=== PATIENT | female | born 1995 | race Caucasian/White ===

== ENCOUNTER → 2021-03-17 | Outpatient (CLI) | payer OTHER ==
[2021-03-17 10:25] LABS: HGB 14.7 gm/dL (11.4-16.0); MCH 30.8 pg (25.0-35.0); MCHC 35.1 g/dL (31.0-37.0); MCV 87.9 fL (80.0-100.0); Mean Platelet Volume 7.6; Platelet Count 320 k/uL (150-450); RBC 4.77 m/uL (3.80-5.40); WBC 8.1 k/uL (3.8-10.6)
== END | disposition home or self-care (01) ==
LOC: LABPAT 09:51
PROVIDERS: ATTEND Obstetrics & Gynecology
DX: Z01.812 Encounter for preprocedural laboratory examination (principal); O02.1 Missed abortion; Z3A.00 Weeks of gestation of pregnancy not specified
CPT/HCPCS: 36415; 85027

== ENCOUNTER 2021-03-19 07:46 | Day surgery (SDC) | payer OTHER ==
[2021-03-17 13:13] VITALS: BMI 34.4
[~2021-03-19 07:46] MED LIST: Pre Op ABX Message 1 EACH MISC MISCELLANE ONE
[2021-03-19] MEDS ORDERED: ONDANSETRON 4 MG/2 ML VIAL ONE (08:07)
[2021-03-19] MEDS ORDERED: LACTATED RINGERS 1,000 ML IV ONE ×2 (08:24→10:41)
[2021-03-19] MEDS ORDERED: DEXAMETHASONE SOD PHOSPHATE 4 MG/ML 1 ML VIAL IVP ONE (08:30)
[2021-03-19] MEDS ORDERED: ONDANSETRON 4 MG/2 ML VIAL IVP ONE (08:30)
[2021-03-19] MEDS ORDERED: SUCCINYLCHOLINE CHLORIDE 100 MG/5 ML SYR IV ONE (08:57)
[2021-03-19] MEDS ORDERED: MIDAZOLAM 2 MG/2 ML VIAL ONE (08:57)
[2021-03-19] MEDS ORDERED: KETOROLAC 15 MG/ML 1 ML VIAL ONE (08:57)
[2021-03-19] MEDS ORDERED: fentaNYL (PF) 50 MCG/ML 2 ML AMP ONE (08:57)
[2021-03-19] MEDS ORDERED: PROPOFOL 10 MG/ML 20 ML VIAL IV ONE (08:57)
[2021-03-19] MEDS ORDERED: LIDOCAINE 1% INJ 10MG/ML (20 ML MDV) ONE (08:57)
[2021-03-19] MEDS ORDERED: SIMETHICONE 80 MG CHEWABLE PO PRN (09:34)
[2021-03-19] MEDS ORDERED: IBUPROFEN 600 MG TAB PO PRN (09:34)
[2021-03-19] MEDS ORDERED: Acetaminophen-Codeine 300-30mg TAB PO PRN ×2 (09:34)
[2021-03-19] MEDS ORDERED: METOCLOPRAMIDE 5 MG/ML 2 ML VIAL IVP PRN (09:34)
[2021-03-19] MEDS ORDERED: diphenhydrAMINE 50 MG/ML 1 ML VIAL IVP PRN (09:34)
[2021-03-19] MEDS ORDERED: ONDANSETRON 4 MG/2 ML VIAL IVP PRN (09:34)
[2021-03-19] MEDS ORDERED: Rhogam IMMUNE GLOBULIN 1,500 UNIT/1 ML IM ONE (09:35)
--- NOTE | 2021-03-19 09:40 | P.OP ---
Date of Procedure: 03/19/21 Preoperative Diagnosis: 8+ week missed Postoperative Diagnosis: Same Procedure(s) Performed: Dilation and aspiration curettage Anesthesia: LEYLA Surgeon: Jose Rosales Estimated Blood Loss (ml): 50 IV fluids (ml): 200 Urine output (ml): 100 Pathology: other (Intrauterine contents) Condition: stable Disposition: PACU Operative Findings: Preoperative pelvic examination demonstrated a roughly 8-9 week slightly anteverted mobile normal shaped uterus with normal adnexa bilaterally. Intraoperatively, the uterus sounded to approximately 10 cm. Tissue was clearly seen passing through the tubing on the first pass and none was noted thereafter. Using the sharp curet, the typical gritty texture was encountered and no further tissue was noted with sharp curettage. Description of Procedure: The patient was prepped and draped in usual fashion after general endotracheal anesthesia was administered by the anesthesiologist. A weighted speculum was placed and the anterior lip of cervix grasped with a single-tooth tenaculum after draining the bladder approximate 100 mL of clear vikas urine. The uterus was sounded to approximately 10 cm as noted above. Serial dilation was carried out to admit a #8 curved aspiration curet which was placed to the fundus of the uterus and suction applied. After adequate suction had been built, thorough and circumferential suction curettage was carried out from the fundus to the cervix with tissue clearly seen passing through the tubing on the first pass. A second pass was made and no further tissue was noted. The aspiration curet was treated for a sharp curette which was utilized to thoroughly and circumferentially curet the lining of the uterus at which time the typical gritty texture was encountered and no further tissue was noted. 2 more passes were made with the suction curet with no further evidence of tissue. All instrumentation was removed. One point of bleeding at one of the tenaculum sites was made hemostatic with pressure. Estimated blood loss for the entire case was 50 mL or less. There were no complications. All sponge, instrument, and needle counts were correct. The patient tolerated the procedure well and proceeded to the recovery room in stable condition.
[2021-03-19] MEDS ORDERED: LACTATED RINGERS 1,000 ML IV SCH (09:45)
[2021-03-19 09:54] VITALS: TEMP 97.8
[2021-03-19 11:12] VITALS: BP 106/75; PULSE 75; RESP 16
== END 2021-03-19 11:30 | disposition home or self-care (01) ==
LOC: OR 07:46
PROVIDERS: ATTEND Obstetrics & Gynecology
DX: O02.1 Missed abortion (principal); F41.9 Anxiety disorder, unspecified; F32.9 Major depressive disorder, single episode, unspecified; Z98.891 History of uterine scar from previous surgery; K21.9 Gastro-esophageal reflux disease without esophagitis; Z90.89 Acquired absence of other organs; Z79.899 Other long term (current) drug therapy
CPT/HCPCS: 86900; 86901; 88305; 86850; 59820; J2790; J2250; J1100; J2405; J2001; J3010; J1885; J0330; J2704

== ENCOUNTER 2022-07-24 23:45 | Inpatient (IN) | payer BC, OTHER ==
[2022-07-25] MEDS ORDERED: CITRIC ACID-SODIUM CITRATE 15 ML CUP PO ONE (00:28)
[2022-07-25] MEDS: LACTATED RINGERS 1,000 ML IV SCH ×4 (01:14→22:54)
[2022-07-25] MEDS: AMPICILLIN 2,000 MG in SODIUM CHLORIDE 0.9% 100 ML IVPB SCH ×3 (01:15→22:54)
[2022-07-25 01:31] LABS: Basophils % (A) 0 %; Eosinophils % (A) 1 %; HCT 35.5 % (34.0-46.0); HGB 12.3 gm/dL (11.4-16.0); Lymphocytes # (A) 1.4 k/uL (1.0-4.8); Lymphocytes % (A) 16 %; MCH 29.2 pg (25.0-35.0); MCHC 34.5 g/dL (31.0-37.0); MCV 84.5 fL (80.0-100.0); Mean Platelet Volume 8.8; Monocytes # (A) 0.3 k/uL (0-1.0); Monocytes % (A) 3 %; Neutrophils # (A) 7.4 k/uL (1.3-7.7); Neutrophils % (A) 79 %; Platelet Count 302 k/uL (150-450); Poikilocytosis Slight; RDW 13.6 % (11.5-15.5); WBC 9.3 k/uL (3.8-10.6)
[2022-07-25] MEDS ORDERED: NALBUPHINE 10 MG/ML (1 ML AMP) ONE (08:01)
[2022-07-25] MEDS ORDERED: OXYTOCIN 30 UNITS/500 ML NS BAG IV ONE (08:01)
[2022-07-25] MEDS ORDERED: KETOROLAC 15 MG/ML 1 ML VIAL ONE (08:01)
[2022-07-25] MEDS ORDERED: ONDANSETRON 4 MG/2 ML VIAL ONE (08:01)
[2022-07-25] MEDS ORDERED: MORPHINE SULFATE (PF) 0.3 MG/0.3 ML SYR ONE (08:01)
[2022-07-25] MEDS ORDERED: LANOLIN CREAM 5 GM TUBE TOPICAL PRN (09:04)
[2022-07-25] MEDS ORDERED: diphenhydrAMINE 50 MG CAP PO PRN (09:04)
[2022-07-25] MEDS ORDERED: diphenhydrAMINE 50 MG/ML 1 ML VIAL IVP PRN ×2 (09:04)
[2022-07-25] MEDS ORDERED: KETOROLAC 15 MG/ML 1 ML VIAL IVP PRN (09:04)
[2022-07-25] MEDS ORDERED: ONDANSETRON 4 MG/2 ML VIAL IVP PRN (09:04)
[2022-07-25] MEDS ORDERED: ZOLPIDEM 5 MG TAB PO PRN (09:04)
[2022-07-25] MEDS ORDERED: NALOXONE 0.4 MG/ML 1 ML VIAL IV PRN (09:04)
[2022-07-25] MEDS ORDERED: SIMETHICONE 80 MG CHEWABLE PO PRN (09:04)
[2022-07-25] MEDS ORDERED: METOCLOPRAMIDE 5 MG/ML 2 ML VIAL IVP PRN (09:04)
[2022-07-25] MEDS ORDERED: diphenhydrAMINE 25 MG CAP PO PRN (09:04)
[2022-07-25] MEDS ORDERED: OXYTOCIN 30 UNITS/500 ML NS 30 UNIT in SALINE 1 500ML.BAG IV SCH (09:15)
--- NOTE | 2022-07-25 09:15 | P.OP ---
Date of Procedure: 07/25/22 Preoperative Diagnosis: #1. 38-5/7 weeks, prolonged rupture of membranes #2. Previous section, requesting repeat #3. Undesired fertility Postoperative Diagnosis: same Procedure(s) Performed: #1. Repeat low transverse section #2. Intraoperative bilateral tubal occlusion with Filshie clips Anesthesia: spinal Surgeon: Jose Rosales Wire Loop Machine Operator #1: Vianney Kenny Estimated Blood Loss (ml): 880 IV fluids (ml): 800 Urine output (ml): 100 Pathology: other (placenta) Condition: stable Disposition: floor Operative Findings: preoperatively, the patient presented with possible rupture of membranes for an on designated length of time, possibly since 5 days ago. Regardless, spontaneous rupture of membranes was documented and the patient was not in labor. She was ultimately brought to the operating room this morning where she underwent repeat low transverse section was delivered of a viable 7 lbs. 12 oz. baby boy with Apgars of 9 at 1 minute and 10 at 5 minutes. The placenta was delivered manually, intact, and grossly normal with a grossly normal three-vessel cord. The uterus, tubes, and ovaries were entirely normal to inspection though there was some omental scarring to the left angle of the anterior portion of the uterus. A Filshie clip was firmly placed across both fallopian tubes in the isthmic portion approximately 2-3 cm from the cornea. Description of Procedure: the patient was prepped and draped in usual fashion after spinal anesthesia was administered by the anesthesiologist. A Pfannenstiel incision was made through pre-existing scar and extended of the abdominal cavity without difficulty. The bladder peritoneum was elevated, incised, and reflected distally. A 2 cm incision was made and the lower segment of the uterus in a transverse fashion attention uterus at which time clear fluid was again noted. Incision was extended in both directions using the bandage scissors. The head was delivered up and through the incision where the nose and mouth were thoroughly suctioned. There were 2 nuchal cords which were reduced prior to delivering the remainder of the . The infant was then delivered onto the field where the cord was doubly clamped, cut, and the passed for resuscitative measures with weight and Apgars as noted above. cord blood was collected for the necessity for RhoGAM prior to discharge. A segment of cord was then doubly clamped, cut, and set aside should cord gases be necessary. The placenta was delivered manually and intact as noted above. The uterus was exteriorized and there was a small adhesion of the omentum to the left middle fundal portion of the uterus which was lysed with the Bovie. The margins of the uterine incision were grasped with Chaney clamps after the uterus was swept of any remaining placental or membranous fragments with a sponge. The incision was closed with a single running locking stitch of 0 chromic catgut from margin to m argin. 2 points of bleeding were made hemostatic following closure with [id number] stitches of 0 chromic catgut. Any small points of bleeding were made hemostatic with the Bovie. Posterior cul-de-sac was suctioned with a guard and the uterus replaced within the abdominal cavity. The gutters swept of any blood, fluid, or clot. After insuring hemostasis was adequate, the parietal peritoneum was loosely reapproximated and layer of muscles examined and made hemostatic with the Bovie. The fascia was closed with a single running stitch of 0 Vicryl proceeding from the lateral margin to lateral margin. The subcutaneous tissues were irrigated, made hemostatic with the Bovie, and reapproximated with a running stitch of 30 plain catgut. The skin was reapproximate with a running subcuticular stitch of 4-0 Vicryl followed by half- inch Steri-Strips placed with Mastisol. Quantitative blood loss for the case was 880 mL which was significantly more than the estimated blood loss. There we re no complications. All sponge, instrument, needle counts were correct. The patient tolerated the procedure well and proceeded to the recovery room in stable condition. Both mother and are resting comfortably in recovery.
[2022-07-25] MEDS: ACETAMINOPHEN TAB 500 MG TAB PO SCH ×2 (13:17→19:57)
[2022-07-25] MEDS: IBUPROFEN 600 MG TAB PO SCH ×2 (16:42→23:28)
[2022-07-25] MEDS: SENNOSIDES-DOCUSATE SODIUM 1 EACH TAB PO SCH (22:52)
[2022-07-26] MEDS: LACTATED RINGERS 1,000 ML IV SCH ×2 (02:29→10:14)
[2022-07-26] MEDS: ACETAMINOPHEN TAB 500 MG TAB PO SCH ×4 (02:30→15:54)
[2022-07-26] MEDS: IBUPROFEN 600 MG TAB PO SCH ×4 (04:38→20:32)
[2022-07-26 07:02] LABS: Basophils % (A) 0 %; Eosinophils # (A) 0.1 k/uL (0-0.7); Eosinophils % (A) 1 %; HCT 29.2 % (34.0-46.0); HGB 10.3 gm/dL (11.4-16.0); Lymphocytes # (A) 1.3 k/uL (1.0-4.8); Lymphocytes % (A) 14 %; MCH 29.9 pg (25.0-35.0); MCHC 35.2 g/dL (31.0-37.0); MCV 84.9 fL (80.0-100.0); Mean Platelet Volume 8.5; Monocytes # (A) 0.4 k/uL (0-1.0); Monocytes % (A) 4 %; Neutrophils % (A) 81 %; Platelet Count 239 k/uL (150-450); Poikilocytosis Slight; RBC 3.44 m/uL (3.80-5.40); RDW 13.6 % (11.5-15.5); WBC 9.9 k/uL (3.8-10.6)
--- NOTE | 2022-07-26 07:23 | P.PN ---
Progress Note - Text Date: 07/26/2022 Time: 06:51 The patient is status post section Vital signs stable VAS: 0-10. Patient has no complaints of pain. The patient incurred some minimal itching yesterday, this itching is now subsiding. Pain meds to be managed by service.
[2022-07-26] MEDS: SENNOSIDES-DOCUSATE SODIUM 1 EACH TAB PO SCH ×2 (07:37→20:32)
--- NOTE | 2022-07-26 09:39 | P.PNOBGPC ---
Subjective - Subjective Patient reports: Reports appetite normal, Reports voiding normally, Reports pain well controlled, Reports ambulating normally : doing well, in NICU (Is starting prophylactic antibiotics for positive blood culture at 24 hours.) Objective - Vital Signs Latest vital signs: Vital Signs Temp Pulse Resp BP Pulse Ox 07/26/22 07:46 98.1 F 71 16 115/73 96 07/26/22 04:00 98.5 F 69 18 154/75 07/26/22 00:00 97.7 F 71 16 124/86 98 07/25/22 20:00 98.3 F 72 16 120/83 96 07/25/22 15:25 97.8 F 78 16 135/87 98 07/25/22 11:08 97.8 F 56 L 16 140/96 07/25/22 10:36 63 16 127/79 98 07/25/22 10:03 56 L 16 148/92 98 07/25/22 09:48 64 17 134/87 97 Intake and Output 07/25/22 07/26/22 07/26/22 22:59 06:59 14:59 Output Total 950 800 Balance -950 -800 Output: Urine 950 800 Other: # Voids 1 0 - Exam Extremities: Present: normal Abdomen: Present: normal appearance, soft. Absent: distention, tenderness Incision: Present: normal, dry, intact Uterus: Present: normal, firm (The uterine fundus as tonic and appropriately tender just below the umbilicus.) - Labs Labs: Abnormal Lab Results - Last 24 Hours (Table) 07/26/22 Range/Units 06:42 RBC 3.44 L (3.80-5.40) m/uL Hgb 10.3 L (11.4-16.0) gm/dL Hct 29.2 L (34.0-46.0) % Neutrophils # 8.0 H (1.3-7.7) k/uL Assessment and Plan (1) S/P section Current Visit: Yes Status: Acute Code(s): Z98.891 - HISTORY OF UTERINE SCAR FROM PREVIOUS SURGERY SNOMED Code(s): 051843636 Plan: Continue routine and postoperative care. I have encouraged patient in the hallways routinely. Given that the infant will not require 48 hours of antibiotics, I would anticipate patient being discharged most likely on postoperative and day #3.
[2022-07-27] MEDS: ACETAMINOPHEN TAB 500 MG TAB PO SCH ×4 (00:10→20:45)
[2022-07-27] MEDS: IBUPROFEN 600 MG TAB PO SCH ×3 (06:46→18:15)
[2022-07-27] MEDS: SENNOSIDES-DOCUSATE SODIUM 1 EACH TAB PO SCH ×2 (07:56→20:45)
--- NOTE | 2022-07-27 08:54 | P.PNOBGPC ---
Subjective - Subjective Patient reports: Reports appetite normal, Reports voiding normally, Reports pain well controlled, Reports ambulating normally : doing well, in NICU (receiving prophylactic antibiotics pending cultures) Objective - Vital Signs Latest vital signs: Vital Signs Temp Pulse Resp BP 07/27/22 08:00 97.5 F L 69 16 157/87 07/27/22 07:58 16 07/27/22 00:00 97.5 F L 72 16 150/70 07/26/22 16:00 97.8 F 86 16 119/83 Intake and Output 07/26/22 07/27/22 07/27/22 22:59 06:59 14:59 Other: Voiding Method Toilet # Voids 2 1 1 - Exam Extremities: Present: normal Abdomen: Present: normal appearance, soft. Absent: distention, tenderness Incision: Present: normal, dry, intact Uterus: Present: normal, firm (tonic inappropriately tender just below the umbilicus.) Assessment and Plan (1) S/P section Current Visit: Yes Status: Acute Code(s): Z98.891 - HISTORY OF UTERINE SCAR FROM PREVIOUS SURGERY SNOMED Code(s): 201747016 Plan: continue routine and postoperative care. Possible discharge home tomorrow pending the disposition of the . I again have recommended she in the hallways routinely.
[2022-07-28] MEDS: IBUPROFEN 600 MG TAB PO SCH ×3 (00:10→14:33)
[2022-07-28 00:48] VITALS: TEMP 97.9
[2022-07-28 08:48] VITALS: BP 136/87; PULSE 71; RESP 16
[2022-07-28] MEDS: ACETAMINOPHEN TAB 500 MG TAB PO SCH ×3 (08:48→14:32)
[2022-07-28] MEDS: SENNOSIDES-DOCUSATE SODIUM 1 EACH TAB PO SCH (08:48)
--- NOTE | 2022-07-28 08:49 | P.PNOBGPC ---
Subjective - Subjective Patient reports: Reports appetite normal, Reports voiding normally, Reports pain well controlled, Reports ambulating normally : doing well Objective - Vital Signs Latest vital signs: Vital Signs Temp Pulse Resp BP Pulse Ox 07/28/22 08:20 97.9 F 71 16 136/87 07/28/22 00:00 97.9 F 60 14 116/73 99 07/27/22 16:00 97.7 F 71 18 143/90 99 Intake and Output 07/27/22 07/28/22 07/28/22 22:59 06:59 14:59 Other: Voiding Method Toilet # Voids 3 1 - Exam Extremities: Present: normal Abdomen: Present: normal appearance, soft. Absent: distention, tenderness Incision: Present: normal, dry, intact Uterus: Present: normal, firm (the uterine fundus as tonic and appropriately tender below the umbilicus.) Assessment and Plan (1) S/P section Current Visit: Yes Status: Acute Code(s): Z98.891 - HISTORY OF UTERINE SCAR FROM PREVIOUS SURGERY SNOMED Code(s): 276841995 Plan: continue routine and postoperative care. She may possibly be discharged this afternoon pending the disposition of the infant was cultures will return earlier this afternoon. It remains possible that the infant was still require one more day of observation prior to discharge in which case the patient will remain here as well.
--- NOTE | 2022-07-28 13:09 | P.DS ---
Providers Date of admission: 07/25/22 00:23 Expected date of discharge: 07/28/22 Attending physician: Jose Rosales Primary care physician: Stated None - Discharge Diagnosis(es) (1) S/P section Current Visit: Yes Status: Acute Hospital Course: the patient is a 27-year-old 3 para 1011 admitted at 38-5/7 weeks with presumed prolonged rupture of membranes for as long as perhaps 5 days. She has a history of a previous section and was planning for repeat section with tubal ligation having signed consent for both in the office. On labor and delivery, all signs reassuring with a category 1 heart rate tracing. As the patient was not in labor she had antibiotic prophylaxis started in the case was delayed until the morning. She also is known to have group B strep positivity and is also Rh- and received RhoGAM at 28 weeks. She was ultimately taken the operating room where she was delivered of a viable 7 lbs. 12 oz. baby boy with Apgars of 9 at 1 minute and 10 at 5 minutes. Intraoperative bilateral tubal occlusion with Filshie clips was carried out as well. Her and postoperative course was entirely unremarkable with vital signs being stable and her temperature was afebrile throughout. She was deemed stable for discharge on day #3 having remained in the hospital secondary to the infant requiring prophylactic antibiotics. She was discharged home to follow-up in the office in 2 weeks for an incision check and 6 weeks routinely. Discharge instructions included calling for any significantly increased bleeding or foul-smelling lochia, significantly increased fever abdominal pain, perineal complaints, breast complaints, incisional complaints, or anything else that concerned her. She was additionally instructed to have nothing in the vagina for at least 6 weeks time to include intercourse. She was additionally instructed to do no heavy lifting over the same period of time. She was last instructed to do no driving until off of all pain medications, or 2 weeks' time, whichever came first. She understood her instructions and agrees to follow up as noted above. Discharge medications included only [id number] analgesic pain medications. Maternal blood type is A- and cord blood was sent for evaluation for the necessity of RhoGAM prior to discharge. Rubella status is immune. Discharge hemoglobin and hematocrit were 10.3 and 29.2 respectively. Procedures: #1. Antibody prophylaxis #2. Repeat low transverse section #3. Intraoperative bilateral tubal occlusion with Filshie clips Patient Condition at Discharge: Stable Plan - Discharge Summary New Discharge Prescriptions: No Action FLUoxetine HCL [PROzac] 20 mg PO DAILY Discharge Medication List FLUoxetine HCL [PROzac] 20 mg PO DAILY 07/25/22 [History] Follow up Appointment(s)/Referral(s): Jose Rosales MD [STAFF PHYSICIAN] - 2 Weeks Discharge Disposition: HOME SELF-CARE
--- NOTE | 2022-07-28 13:14 | P.HPOB ---
History of Present Illness H&P Date: 07/28/22 Chief Complaint: 38-5/7 weeks, previous requesting repeat, spontaneous rupture the patient is a 27-year-old 3 para 1011 admitted at 38-5/7 weeks by good dating parameters. She is admitted with documented spontaneous rupture of membranes for perhaps as long as 5 days prior to admission. Her initial evaluation demonstrated category 1 heart rate tracing with no contractions. She carries a history of a previous section and was scheduled for repeat with intraoperative tubal occlusion with Filshie clips. Given the lack of labor, she was admitted and antibiotic prophylaxis started with the intention of proceeding to the operating room first thing in the morning. group B strep status is positive. The patient is also Rh- and received RhoGAM at 28 weeks. Obstetrical history: 3 para 1011 with 1 term section and one ea rly miscarriage requiring D&C. Current statistics are listed in history of present illness. EDC of 08/09/2022 was established by last menstrual period and confirmed by early ultrasound. Laboratory workup demonstrates a blood type of A- with a negative antibody screen. Rubella status is immune. The remainder of the laboratory workup was within normal limits. Early Glucola was normal. Second trimester Glucola was elevated but followed by a normal three-hour glucose tolerance test. Group B strep status is positive. Gynecologic history: Unremarkable with no history of any infections to include STDs. Past Medical History Past Medical History: No Reported History Additional Past Medical History / Comment(s): miscarriage History of Any Multi-Drug Resistant Organisms: None Reported Past Surgical History: Section, Tonsillectomy Past Anesthesia/Blood Transfusion Reactions: No Reported Reaction Past Psychological History: Anxiety, Depression Smoking Status: Never smoker Past Alcohol Use History: None Reported Past Drug Use History: None Reported - Past Family History Mother Family Medical History: No Reported History Medications and Allergies Home Medications Medication Instructions Recorded Confirmed Type FLUoxetine HCL [PROzac] 20 mg PO DAILY 07/25/22 07/25/22 History Allergies Allergy/AdvReac Type Severity Reaction Status Date / Time No Known Allergies Allergy Verified 07/25/22 00:27 Exam Vital Signs Temp Pulse Resp BP Pulse Ox 07/28/22 08:20 97.9 F 71 16 136/87 07/28/22 00:00 97.9 F 60 14 116/73 99 07/27/22 16:00 97.7 F 71 18 143/90 99 Intake and Output 07/27/22 07/28/22 07/28/22 22:59 06:59 14:59 Other: Voiding Method Toilet # Voids 3 1 in general, this is a well-developed, well-nourished white female in no acute distress. Her heart has a regular rhythm and rate without murmur. Her lungs clear to auscultation bilaterally in all araujo. Her abdomen is gravid, nondistended, has normal active bowel sounds, soft, nontender, and without any palpable masses aside from uterine fundus. Her extremities are without any cyanosis, clubbing, or significant edema and are nontender to palpation bilaterally. Digital cervical examination is deferred. Results Result Diagrams: 07/26/22 06:42 Assessment and Plan (1) S/P section Current Visit: Yes Status: Acute Code(s): Z98.891 - HISTORY OF UTERINE SCAR FROM PREVIOUS SURGERY SNOMED Code(s): 529627162 (2) H/O section Current Visit: Yes Status: Acute Code(s): Z98.891 - HISTORY OF UTERINE SCAR FROM PREVIOUS SURGERY SNOMED Code(s): 152206646 (3) PROM (premature rupture of membranes) Current Visit: Yes Status: Acute Code(s): O42.90 - CATHY ROM, 7TH0 BETW RUPT & ONST LABR, UNSP WEEKS OF GEST SNOMED Code(s): 72056797 (4) Term Current Visit: Yes Status: Acute Code(s): Z34.90 - ENCNTR FOR SUPRVSN OF NORMAL , UNSP, UNSP TRIMESTER SNOMED Code(s): 77504737 Plan: the patient is admitted for repeat low transverse section. She presented in the middle the night, antibody prophylaxis was started for group B strep concerns and for possible prolonged rupture of membranes with the intention of proceeding to the operating room first thing in the morning. She will have close maternal and surveillance and expectant management in the meantime will be practiced. She has signed consent for intraoperative bilateral tubal occlusion at the time of section.
== END 2022-07-28 15:30 | disposition home or self-care (01) | DRG 785 ==
LOC: FBPOP 23:45 → 4FBP 07-25 00:23
PROVIDERS: ADMIT Obstetrics & Gynecology Obstetrics; ATTEND Obstetrics & Gynecology
PROC: 0UL70CZ Occlusion of Bilateral Fallopian Tubes with Extraluminal Device, Open Approach (ICD-10-PCS; 2022-07-25)
PROC: 0DNU0ZZ Release Omentum, Open Approach (ICD-10-PCS; 2022-07-25)
PROC: 10D00Z1 Extraction of Products of Conception, Low, Open Approach (ICD-10-PCS; principal; 2022-07-25 08:00)
DX: O34.211 Maternal care for low transverse scar from previous cesarean delivery (principal); F32.A Depression, unspecified; F41.9 Anxiety disorder, unspecified; O99.892 Other specified diseases and conditions complicating childbirth; N73.6 Female pelvic peritoneal adhesions (postinfective); L29.9 Pruritus, unspecified; O99.73 Diseases of the skin and subcutaneous tissue complicating the puerperium; O42.92 Full-term premature rupture of membranes, unspecified as to length of time between rupture and onset of labor; O99.344 Other mental disorders complicating childbirth; O99.824 Streptococcus B carrier state complicating childbirth; Z30.2 Encounter for sterilization; Z37.0 Single live birth; Z3A.38 38 weeks gestation of pregnancy; Z79.899 Other long term (current) drug therapy
CPT/HCPCS: 59025; 84112; 85025; 86850; 86870; 86880; 86900; 86901; 99213

== ENCOUNTER 2023-08-23 14:23 | Emergency (ER) | payer BC, OTHER ==
[2023-08-23 15:03] VITALS: RESP 18; TEMP 98
[2023-08-23] MEDS ORDERED: SODIUM CHLORIDE 0.9% 1,000 ML IV STA (15:11)
--- NOTE | 2023-08-23 15:25 | ED ---
Abdominal Pain HPI - General Chief Complaint: Abdominal Pain Stated Complaint: Abd Pain Time Seen by Provider: 08/23/23 14:54 Source: patient, RN notes reviewed Mode of arrival: ambulatory Limitations: no limitations - History of Present Illness Initial Comments: Patient is a 28-year-old female presented ER with chief complaint of abdominal pain. Patient states her pain started this morning and she has been endorsing associated nausea and cold sweats. Patient denies any vomiting. She reports recent diarrhea. Patient denies any abdominal surgeries. She states food is making her pain worse. She describes her pain as a constant right upper quad rant/epigastric pain. Patient denies any urinary symptoms, fevers, shortness of breath, chest pain. - Related Data Home Medications Medication Instructions Recorded Confirmed FLUoxetine HCL [PROzac] 20 mg PO DAILY 07/25/22 07/25/22 Allergies Allergy/AdvReac Type Severity Reaction Status Date / Time No Known Allergies Allergy Verified 07/25/22 00:27 Review of Systems ROS Statement: Those systems with pertinent positive or pertinent negative responses have been documented in the HPI. ROS Other: All systems not noted in ROS Statement are negative. Past Medical History Past Medical History: No Reported History Additional Past Medical History / Comment(s): miscarriage History of Any Multi-Drug Resistant Organisms: None Reported Past Surgical History: Section, Tonsillectomy Past Anesthesia/Blood Transfusion Reactions: No Reported Reaction Past Psychological History: Anxiety, Depression Smoking Status: Never smoker Past Alcohol Use History: None Reported Past Drug Use History: None Reported - Past Family History Mother Family Medical History: No Reported History General Exam Limitations: no limitations General appearance: alert, in no apparent distress Head exam: Present: atraumatic, normocephalic, normal inspection Respiratory exam: Present: normal lung sounds bilaterally. Absent: respiratory distress, wheezes, rales, rhonchi, stridor Cardiovascular Exam: Present: regular rate, normal rhythm, normal heart sounds. Absent: systolic murmur, diastolic murmur, rubs, gallop, clicks GI/Abdominal exam: Present: soft, tenderness (Right upper quadrant/epigastric. Positive Gregory sign.), normal bowel sounds Neurological exam: Present: alert, oriented X3, CN II-XII intact Psychiatric exam: Present: normal affect, normal mood Skin exam: Present: warm, dry, intact, normal color. Absent: rash Course Vital Signs 08/23/23 14:45 Temperature 98.0 F Pulse Rate 77 Respiratory 18 Rate Blood Pressure 157/118 O2 Sat by Pulse 99 Oximetry Medical Decision Making - Medical Decision Making Was pt. sent in by a medical professional or institution (, PA, ELECTRICAL APPRENTICE, urgent c are, hospital, or fpc...) When possible be specific @ -Patient was sent here by urgent care for gallbladder ultrasound with concern for cholecystitis. Did you speak to anyone other than the patient for history (EMS, parent, family, police, friend...)? What history was obtained from this source @ -No Did you review nursing and triage notes (agree or disagree)? Why? @ -I reviewed and agree with nursing and triage notes Were old charts reviewed (outside hosp., previous admission, EMS record, old EKG, old radiological studies, urgent care reports/EKG's, fpc records)? Report findings @ -Reviewed urgent care visit from 08/23/23. UA was completed and did not show any signs of infection. Urine hcg negative. Differential Diagnosis (chest pain, altered mental status, abdominal pain women, abdominal pain men, vaginal bleeding, weakness, fever, dyspnea, syncope, headache, dizziness, GI bleed, back pain, seizure, CVA, palpatations, mental health, musculoskeletal)? @ -Differential Abdominal Pain Women: Appendicitis, Cholecystitis, diverticulosis, ischemic bowel, pancreatitis, hepatitis, UTI, gastroenteritis, AAA, incarcerated hernia, bowel obstruction, constipation, inflammatory bowel, hepatitis, peptic ulcer disease, splenic infarction, perforated viscus, vulvitis, ovarian torsion, PID, kidney stone, placenta abruption, this is not meant to be an all-inclusive list EKG interpreted by me (3pts min.). @ -None done X-rays interpreted by me (1pt min.). @ -None done CT interpreted by me (1pt min.). @ -None done U/S interpreted by me (1pt. min.). @ -Gallbladder ultrasound does show cholelithiasis without evidence of wall thickening or acute cholecystitis. What testing was considered but not performed or refused? (CT, X-rays, U/S, labs)? Why? @ -None What meds were considered but not given or refused? Why? @ -None Did you discuss the management of the patient with other professionals (professionals i.e. , PA, ELECTRICAL APPRENTICE, lab, RT, psych nurse, social welfare research worker, patient support assistant, teacher, aircraft electronics technical officer, catalytic case operator)? Give summary @ -Yes, I discussed this case with Dr. Granda, on-call general surgeron. She stated patient will have to be transferred for GI consultation for possible ERCP. I also discussed this case with [facility] accepted patient. I also spoke with Dr. Sathya Oliveira ER physician accepting patient. Was smoking cessation discussed for >3mins.? @ -No Was critical care preformed (if so, how long)? @ -No Were there social determinants of health that impacted care today? How? (Homelessness, low income, unemployed, alcoholism, drug addiction, transportation, low edu. Level, literacy, decrease access to med. care, m[facility], r ehab)? @ -No Was there de-escalation of care discussed even if they declined (Discuss DNR or withdrawal of care, Hospice)? DNR status @ -No What co-morbidities impacted this encounter? (DM, HTN, Smoking, COPD, CAD, Cancer, CVA, ARF, Chemo, Hep., AIDS, mental health diagnosis, sleep apnea, morbid obesity)? @ -None Was patient admitted / discharged? Hospital course, mention meds given and route, prescriptions, significant lab abnormalities, going to OR and other pertinent info. @ - Transferred to [facility] Patient is a 28-year-old female presented ER with chief complaint of right upper quadrant/epigastric pain. Vitals stable. Physical exam was significant for exquisitely tender right upper quadrant and epigastric region. UA results from urgent care were reviewed and did not show any signs of infection. Urine hcg negative. Labs obtained in the ER were significant for white blood cell count 12.6, lipase > 20,000, amylase 1557, AST 279, ALT 278, alk phos of 128. Gallbladder ultrasound shows cholelithiasis without evidence of wall thickening or acute cholecystitis. Lab and imaging findings were consistent for gallstone pancreatitis. Patient received IV fluids, Dilaudid, Zofran, and Reglan for symptom control. Patient was started on IV Unasyn. I discussed this case with Dr. Granda, on-call general surgeon, who advised patient to be transferred for GI consultation and possible ERCP. I spoke with GI on-call doctor at [facility] and ER doc Dr. Mcdonnell who accepted patient. Patient will be transported to [facility] in stable condition for further care and GI consult. Undiagnosed new problem with uncertain prognosis? @ -No Drug Therapy requiring intensive monitoring for toxicity (Heparin, Nitro, Insulin, Cardizem)? @ -No Were any procedures done? @ -No Diagnosis/symptom? @ -Gallstone pancreatitis Acute, or Chronic, or Acute on Chronic? @ -Acute Uncomplicated (without systemic symptoms) or Complicated (systemic symptoms)? @ -Complicated Side effects of treatment? @ -No Exacerbation, Progression, or Severe Exacerbation? @ -No Poses a threat to life or bodily function? How? (Chest pain, [place], [place], pneumonia, PE, COPD, DKA, ARF, appy, cholecystitis, CVA, Diverticulitis, Homicidal, Suicidal, threat to staff... and all critical care pts) @ -No - Lab Data Result diagrams: 08/23/23 15:15 08/23/23 15:15 Lab Results 08/23/23 08/23/23 08/23/23 Range/Units 15:15 15:15 15:15 WBC 12.6 H (3.8-10.6) k/uL RBC 4.90 (3.80-5.40) m/uL Hgb 14.3 (11.4-16.0) gm/dL Hct 41.4 (34.0-46.0) % MCV 84.5 (80.0-100.0) fL MCH 29.1 (25.0-35.0) pg MCHC 34.5 (31.0-37.0) g/dL RDW 13.1 (11.5-15.5) % Plt Count 279 (150-450) k/uL MPV 7.1 Sodium 139 (137-145) mmol/L Potassium 3.9 (3.5-5.1) mmol/L Chloride 101 (98-107) mmol/L Carbon Dioxide 25 (22-30) mmol/L Anion Gap 13 mmol/L BUN 13 (7-17) mg/dL Creatinine 0.64 (0.52-1.04) mg/dL Est GFR (CKD-EPI)AfAm >90 (>60 ml/min/1.73 sqM) Est GFR (CKD-EPI)NonAf >90 (>60 ml/min/1.73 sqM) Glucose 116 H (74-99) mg/dL Plasma Lactic Acid Zay 0.9 (0.7-2.0) mmol/L Calcium 9.5 (8.4-10.2) mg/dL Total Bilirubin 1.1 (0.2-1.3) mg/dL AST 279 H (14-36) U/L ALT 278 H (4-34) U/L Alkaline Phosphatase 128 H (38-126) U/L Total Protein 7.6 (6.3-8.2) g/dL Albumin 4.5 (3.5-5.0) g/dL Amylase 1557 H* (30-110) U/L Lipase >97343 H (23-300) U/L Influenza Type A (PCR) (Not Detectd) Influenza Type B (PCR) (Not Detectd) RSV (PCR) (Not Detectd) SARS-CoV-2 (PCR) (Not Detectd) 08/23/23 Range/Units 15:41 WBC (3.8-10.6) k/uL RBC (3.80-5.40) m/uL Hgb (11.4-16.0) gm/dL Hct (34.0-46.0) % MCV (80.0-100.0) fL MCH (25.0-35.0) pg MCHC (31.0-37.0) g/dL RDW (11.5-15.5) % Plt Count (150-450) k/uL MPV Sodium (137-145) mmol/L Potassium (3.5-5.1) mmol/L Chloride (98-107) mmol/L Carbon Dioxide (22-30) mmol/L Anion Gap mmol/L BUN (7-17) mg/dL Creatinine (0.52-1.04) mg/dL Est GFR (CKD-EPI)AfAm (>60 ml/min/1.73 sqM) Est GFR (CKD-EPI)NonAf (>60 ml/min/1.73 sqM) Glucose (74-99) mg/dL Plasma Lactic Acid Zay (0.7-2.0) mmol/L Calcium (8.4-10.2) mg/dL Total Bilirubin (0.2-1.3) mg/dL AST (14-36) U/L ALT (4-34) U/L Alkaline Phosphatase (38-126) U/L Total Protein (6.3-8.2) g/dL Albumin (3.5-5.0) g/dL Amylase (30-110) U/L Lipase (23-300) U/L Influenza Type A (PCR) Not Detected (Not Detectd) Influenza Type B (PCR) Not Detected (Not Detectd) RSV (PCR) Not Detected (Not Detectd) SARS-CoV-2 (PCR) Not Detected (Not Detectd) - Radiology Data Radiology results: report reviewed, image reviewed Disposition Clinical Impression: Gallstone pancreatitis Disposition: OTHER INSTITUTION NOT DEFINED Condition: Stable Referrals: Tab Stanford MD [Primary Care Provider] - 1-2 days Time of Disposition: 20:08 - Out of Hospital Transfer - Req. Specs Out of Hospital Transfer - Requested Specifics: Other Emergency Center (GI consult)
[2023-08-23 15:30] LABS: HCT 41.4 % (34.0-46.0); HGB 14.3 gm/dL (11.4-16.0); MCH 29.1 pg (25.0-35.0); MCHC 34.5 g/dL (31.0-37.0); MCV 84.5 fL (80.0-100.0); Mean Platelet Volume 7.1; Platelet Count 279 k/uL (150-450); RDW 13.1 % (11.5-15.5); WBC 12.6 k/uL (3.8-10.6)
[2023-08-23 16:05] LABS: ALT 278 U/L (4-34); AST 279 U/L (14-36); African American GFR (CKD) >90 (>60 ml/min/1.73 sqM); Albumin 4.5 g/dL (3.5-5.0); Alkaline Phosphatase 128 U/L (38-126); Blood Urea Nitrogen 13 mg/dL (7-17); Calcium 9.5 mg/dL (8.4-10.2); Carbon Dioxide 25 mmol/L (22-30); Non-African American GFR(CKD) >90 (>60 ml/min/1.73 sqM); Total Bilirubin 1.1 mg/dL (0.2-1.3); Total Protein 7.6 g/dL (6.3-8.2)
[2023-08-23 16:46] LABS: Amylase 1557 U/L (30-110)
--- NOTE | 2023-08-23 16:46 | US ---
EXAMINATION TYPE: US gallbladder DATE OF EXAM: 08/23/2023 COMPARISON: NONE CLINICAL INDICATION: Female, 28 years old with history of pain; RUQ pain and N/V TECHNIQUE: Multiple sonographic images of the right upper quadrant are obtained. FINDINGS: EXAM MEASUREMENTS: Liver Length: 13.8 cm Gallbladder Wall: 0.3 cm CBD: 0.4 cm Right Kidney: 11.9 x 4.0 x 5.4 cm Pancreas: portions seen appear wnl Liver: wnl Gallbladder: +MARIELLE sign, borderline wall Evidence for sonographic Gregory's sign: no CBD: wnl Right Kidney: wnl IMPRESSION: Gallbladder filled with gallstones without evidence for wall thickening or acute cholecystitis. Consi angelina nuclear medicine HIDA scan as the next step in workup.
[2023-08-23 16:58] LABS: Anion Gap 13 mmol/L; Chloride 101 mmol/L (98-107); Glucose 116 mg/dL (74-99); Potassium 3.9 mmol/L (3.5-5.1); Sodium 139 mmol/L (137-145)
[2023-08-23 17:26] LABS: Lipase >20000 U/L (23-300)
[2023-08-23] MEDS ORDERED: ONDANSETRON 4 MG/2 ML VIAL IVP STA (18:09)
[2023-08-23] MEDS ORDERED: HYDROmorphone 0.5 MG/0.5 ML SYRINGE IVP STA (18:09)
[2023-08-23] MEDS ORDERED: AMPICILLIN-SULBACTAM 3 GM in SODIUM CHLORIDE 0.9% 100 ML IVPB STA (19:21)
[2023-08-23] MEDS ORDERED: METOCLOPRAMIDE 5 MG/ML 2 ML VIAL IVP STA (19:57)
[2023-08-23] MEDS ORDERED: HYDROmorphone 1 MG/ML 1 ML SYRINGE IVP STA (19:57)
[2023-08-23 20:30] VITALS: BP 143/92; PULSE 67
== END 2023-08-23 20:45 | disposition other institution (70) ==
LOC: EC 14:23
DX: K85.10 Biliary acute pancreatitis without necrosis or infection (principal); K80.20 Calculus of gallbladder without cholecystitis without obstruction; F32.A Depression, unspecified; F41.9 Anxiety disorder, unspecified; Z20.822 Contact with and (suspected) exposure to COVID-19; Z79.899 Other long term (current) drug therapy
CPT/HCPCS: 36415; 80053; 82150; 83605; 83690; 85027; 87636; 76705; 99285; 96365; 96375 ×3; 96376; 96361; J2765; J2405; J1170 ×2; J0295

== ENCOUNTER → 2023-09-05 | Outpatient (CLI) | payer BC, OTHER ==
--- NOTE | 2023-09-05 13:12 | CT ---
EXAMINATION TYPE: CT abdomen pelvis w con DATE OF EXAM: 09/05/2023 COMPARISON: None INDICATION: BILIARY ACUTE PANCREATITIS DLP: 1122.90 mGycm, Automated exposure control for dose reduction was used. CONTRAST: 100 mL of Isovue 300. Study performed with Oral Contrast TECHNIQUE: Axial images were obtained from above the diaphragm to the pubic rami in the axial plane a t 5 mm thick sections. Reconstructed images are reviewed on the computer in the coronal plane. FINDINGS: Limited CT sections are obtained the lung bases. The lung bases are clear. Bilateral breast prosthe ses are evident. CT ABDOMEN: Liver: Normal Spleen: Normal Pancreas: Head body and tail of the pancreas as visualized appears normal. No adjacent inflammatory c hanges. No masses are evident. No ectatic duct dilatation is evident. Density change within the homog enous. Pancreas is evident. Adrenal glands: The adrenal glands are normal. Gallbladder: Faint gallstones are likely present. Kidneys: No masses are evident. No hydronephrosis is present. No cysts are present. Delayed images were obtained through the kidneys, which remain unremarkable. Aorta: Normal Inferior vena cava: Normal. CT PELVIS: Transverse colon appears decompressed. In the coronal plane some minimal wall thickening t hrough the transverse colon extending into the descending colon may be present. Consider a mild colit is. Remaining loops of bowel within the abdomen and pelvis are normal. There are loops of bowel with incomplete distention or without oral contrast limiting their evaluation. Appendix: Normal as visualized. Urinary bladder: Normal. Genitourinary structures: Uterus appears normal. Adnexa are unremarkable. Surgical clips are within t he pelvis. Osseous structures: No suspicious lytic or sclerotic lesions. IMPRESSION: 1. Minimal colitis of the transverse and descending colon is not excluded. Correlate with symptoms. 2. Pancreas appears unremarkable. 3. Faint gallstones may be present.
== END | disposition home or self-care (01) ==
LOC: RADCTMAIN 10:01
PROVIDERS: ATTEND Family Medicine
DX: K80.20 Calculus of gallbladder without cholecystitis without obstruction (principal); K52.9 Noninfective gastroenteritis and colitis, unspecified; K85.10 Biliary acute pancreatitis without necrosis or infection
CPT/HCPCS: 74177; Q9967

== ENCOUNTER 2023-09-20 08:36 | Day surgery (SDC) | payer BC, OTHER ==
[2023-09-14 11:52] VITALS: BMI 34.3
[~2023-09-20 08:36] MED LIST changes: +HYDROmorphone 0.5 MG/0.5 ML SYRINGE IVP PRN; +LIDOCAINE 1% (10MG/ML) FOR IV START INTRADERMA PRN; +MIDAZOLAM 2 MG/2 ML VIAL IV PRN; -Pre Op ABX Message 1 EACH MISC MISCELLANE ONE
[2023-09-20] MEDS: LACTATED RINGERS 1,000 ML IV SCH (09:02)
[2023-09-20] MEDS: DEXAMETHASONE SOD PHOSPHATE 4 MG/ML 1 ML VIAL IV ONE (09:02)
[2023-09-20] MEDS: ACETAMINOPHEN TAB 500 MG TAB PO PRN (09:02)
[2023-09-20] MEDS: HEPARIN SODIUM,PORCINE 5,000 UNIT/ML 1 ML VIAL SQ PRN (09:03)
[2023-09-20] MEDS: ONDANSETRON 4 MG/2 ML VIAL IVP ONE (09:03)
[2023-09-20] MEDS ORDERED: HYDROmorphone (PF) 1 MG/ML ONE (09:57)
[2023-09-20] MEDS ORDERED: SUCCINYLCHOLINE CHLORIDE 200 MG/10 ML VIAL IV ONE (09:57)
[2023-09-20] MEDS ORDERED: ROCURONIUM 10 MG/ML (5 ML VIAL) IV ONE (09:57)
[2023-09-20] MEDS ORDERED: GLYCOPYRROLATE 0.2 MG/ML 2 ML VIAL ONE (09:57)
[2023-09-20] MEDS ORDERED: NEOSTIGMINE 1 MG/ML 10 ML VIAL ONE (09:57)
[2023-09-20] MEDS ORDERED: ESMOLOL 100 MG/10 ML VIAL ONE (09:57)
[2023-09-20] MEDS ORDERED: MIDAZOLAM 2 MG/2 ML VIAL ONE (09:57)
[2023-09-20] MEDS ORDERED: PROPOFOL 10 MG/ML 20 ML VIAL IV ONE (09:57)
[2023-09-20] MEDS ORDERED: LIDOCAINE 1% INJ 10MG/ML (20 ML MDV) ONE (09:57)
[2023-09-20] MEDS ORDERED: fentaNYL (PF) 50 MCG/ML 2 ML AMP ONE (09:57)
[2023-09-20] MEDS ORDERED: KETOROLAC 15 MG/ML 1 ML VIAL ONE (09:57)
[2023-09-20] MEDS ORDERED: KETAMINE HCL IN 0.9 % NACL 50 MG/5 ML SYRINGE ONE (09:57)
--- NOTE | 2023-09-20 11:01 | P.OP ---
Date of Procedure: 09/20/23 Preoperative Diagnosis: Cholecystitis Cholelithiasis Postoperative Diagnosis: Cholecystitis Cholelithiasis Procedure(s) Performed: Laparoscopic cholecystectomy Anesthesia: LEYLA Surgeon: Hari Oconnor Estimated Blood Loss (ml): 5 Pathology: other (Gallbladder) Condition: stable Disposition: PACU Description of Procedure: The patient was placed on the operating table. The patient received a general endotracheal tube anesthesia. The patients abdomen was prepped and draped in the usual sterile fashion. Through an infraumbilical stab incision, the fascia of the anterior abdominal wall was grasped with a pair of Kochers and then the Veress needle was placed in the peritoneal cavity. Position of the Veress needle was confirmed with positive drop test. The abdomen was then insufflated. After adequate insufflation, the 10 mm trocar was placed in the peritoneal cavity. Following this the laparoscope was placed in the peritoneal cavity. The patient was placed in the head-up, right side up position and then a 5 mm trocar was placed in the right lateral and right subcostal position under direct visualization. A 8 mm trocar was placed in the epigastric position. The gallbladder was grasped in the fundus and infundibulum. Traction on the gallbladder was placed in the lateral and the cephalad positions. The triangle of Calot was visualized.. The cystic duct was bluntly dissected until the union of the cystic duct and common bile duct was seen. A critical view of safety was achieved. The cystic duct was then divided and sealed with the Harmonic scissors. A PDS Endoloop was then placed throughout the cystic duct stump. The cystic artery divided and sealed with the Harmonic scissors. The gallbladder was then removed from the liver bed using Harmonic scissors. The gallbladder was then extracted through the epigastric port site. Operative field was checked for any bleeding spots and Harmonic scissors was used to coagulate the liver bed. The abdomen was irrigated. The trocars were removed. The skin was closed using interrupted 3-0 Vicryl suture. Dermabond dressing were applied. The patient tolerated the procedure well.
[2023-09-20 11:14] VITALS: TEMP 96.8
[2023-09-20 11:44] VITALS: RESP 16
[2023-09-20 13:14] VITALS: BP 139/90; PULSE 70
== END 2023-09-20 13:24 | disposition home or self-care (01) ==
LOC: OR 08:36
PROVIDERS: ATTEND Surgery
DX: K80.10 Calculus of gallbladder with chronic cholecystitis without obstruction (principal); F41.9 Anxiety disorder, unspecified; K21.9 Gastro-esophageal reflux disease without esophagitis; Z90.89 Acquired absence of other organs; Z98.891 History of uterine scar from previous surgery; Z79.899 Other long term (current) drug therapy
CPT/HCPCS: 47562; 81025; 88304; J2250; J0330; J1644; J1100; J2710; J0690; J2405; J2001; J3010; J1170; J1885; J2704; J1805